=== PATIENT | male | born 1970 | race Caucasian/White ===

== ENCOUNTER 2016-10-23 20:11 | Emergency (ER) | payer OTHER ==
[~2016-10-23] VITALS: Ht 175.3 cm; Wt 108.9 kg
[~2016-10-23 20:11] MED LIST: COLA100C2 OR; KEFL500C OR; LEVOXYL25 MCG OR; PERC5TAB8 OR; PYRI200T OR; VICO5TAB OR
[2016-10-23] MEDS ORDERED: SERT-138 (20:24)
[2016-10-23] MEDS ORDERED: LEVO200T4 (20:24)
[2016-10-23] MEDS ORDERED: HYDR10TAB (20:24)
[2016-10-23] MEDS ORDERED: LABE10TAB (20:24)
[2016-10-23] MEDS ORDERED: TESS100C PO (22:38)
[2016-10-23] MEDS ORDERED: MAGICMW SSP (22:38)
[2016-10-23 22:55] VITALS: BP 145/88
--- NOTE | 2016-10-24 08:07 | REP ---
Clinical: Cough. Technique: PA and lateral. Comparison: 05/15/2016. Findings: Evaluation is somewhat limited by poor inspiratory effort. There is evidence to suggest right lower lobe infiltrate/atelectasis. No obvious effusion. No pneumothorax. Mediastinum and cardiac silhouette normal. Skeletal structures intact. Impression: Right lower lobe infiltrate/atelectasis. Signed by Preston Cespedes MD 10/24/2016 07:58 A
--- NOTE | 2016-10-24 11:56 | ED PDOC ---
Post-Departure Follow-Up formal cxr noted. spoke w ed apprentice painter brush. chart reviewed. Tmax 101 at home w cough for 1 wk to rx. levaquin 750 mg qd. Scot quarles will reach out to pt. and review. Omar Nichole MD Oct 24, 2016 11:56
== END 2016-10-23 22:57 | disposition home or self-care (01) ==
LOC: M ED 21:28
DX: J06.9 Acute upper respiratory infection, unspecified (principal); I10 Essential (primary) hypertension; E03.9 Hypothyroidism, unspecified; G47.30 Sleep apnea, unspecified; Z98.84 Bariatric surgery status; Z79.899 Other long term (current) drug therapy; Z88.5 Allergy status to narcotic agent; Z88.8 Allergy status to other drugs, medicaments and biological substances

== ENCOUNTER 2017-03-21 05:28 | Inpatient (IN) | payer OTHER ==
[~2017-03-21] VITALS: Ht 175.3 cm; Wt 92.6 kg
[~2017-03-21 05:28] MED LIST changes: +HYDR10TAB PO; +LABE10TAB PO; +LEVO200T4 PO; +MAGICMW SSP; +SERT-138 PO; +TESS100C PO
[2017-03-21 06:07] LABS: MEAN CORPUSCULAR HGB CONC 33.8 g/dl (32.0-36.5); MEAN CORPUSCULAR VOLUME 82.7 fl (80.0-96.0); RED CELL DISTRIBUTION WIDTH 15.1 % (11.5-14.5); WHITE BLOOD COUNT 6.5 K/mm3 (4.0-10.0)
[2017-03-21 06:46] LABS: METHADONE URINE NEGATIVE (NEGATIVE)
[2017-03-21] MEDS ORDERED: MOM 30ML SUSPENSION UDC PO PRN (07:00)
[2017-03-21] MEDS ORDERED: MAALOX 30 ML SUSP *UDC PO PRN (07:00)
[2017-03-21 07:02] LABS: ALBUMIN 4.7 GM/DL (3.2-5.2); ALBUMIN/GLOBULIN RATIO 1.47 (1.00-1.93); ALKALINE PHOSPHATASE 92 U/L (45-117); ALT/SGPT 17 U/L (12-78); ANION GAP 12 MEQ/L (8-16); AST/SGOT 19 U/L (15-37); BILIRUBIN,DIRECT 0.5 MG/DL (0.0-0.2); BLOOD UREA NITROGEN 14 MG/DL (7-18); CALCIUM LEVEL 9.3 MG/DL (8.5-10.1); CARBON DIOXIDE LEVEL 27 MEQ/L (21-32); CHLORIDE LEVEL 104 MEQ/L (98-107); CREATININE FOR GFR 1.17 MG/DL (0.70-1.30); GLOMERULAR FILTRATION RATE > 60.0 (>60); GLUCOSE, FASTING 105 MG/DL (70-105); POTASSIUM SERUM 3.4 MEQ/L (3.5-5.1); SODIUM LEVEL 143 MEQ/L (136-145); TOTAL PROTEIN 7.9 GM/DL (6.4-8.2)
[2017-03-21] MEDS ORDERED: SERTRALINE HCL 50 MG TAB PO SCH (09:00)
[2017-03-21 12:38] VITALS: BP 188/120
--- NOTE | 2017-03-21 15:49 | MHHPEPDOC ---
[facility] History & Physical History and Physical DATE OF ADMISSION: Mar 21, 2017 at 06:57 LEGAL STATUS AT ADMISSION: 9.39 CHIEF COMPLAINT: Patient came to the ED saying he wanted to OD on all his medications because he is at "the end of his rope" since he has financial problems. HISTORY OF THE PRESENT ILLNESS: Patient is a 46-year-old male, who reports he has financial problems due overspending. He states he has about $6,000.00 in debts and he is not employed, he receives SSI and repeats over and over again," I don't know why I do this." He feels overwhelmed now that he is getting calls demanding money. He and his son live together and share expenses. His son is also on disability for Mild intellectual functioning, bipolar disorder and ADHD. He is very concerned about his 's health who has lung cancer. PSYCHIATRIC REVIEW OF SYSTEMS: Affective: Hopeless, helpless, frustrated Anxiety: Very high Trauma: Denies Psychosis: He's not responding to internal stimuli, denies psychosis Personally: Needs further assessment PAST PSYCHIATRIC HISTORY: Prior Psychiatric Disorder: Patient says he has been taking Zoloft, and his doctor upgraded to 200 mgs. PO QD, but has not been compliant with it. Outpatient Treatment: Gets medication from his family Doctor, Dr. Erik Loya. He used to go to [facility]. He doesn't remember what medications he was on. He started feeling well and then, he stopped taking them Suicidal/Self injurious: He has suicidal ideation Psychotropic Medication History: He has taken other psychiatric medications whose name he doesn't remember but he knows he takes Zoloft. He "thinks" he took Ritalin years ago for ADHD. ALLERGIES: Please see below. FAMILY PSYCHIATRIC HISTORY: He has a 23 year son who has been diagnosed with Bipolar Disorder, ADHD and Mild Intellectual Disability. He is on disability for those reason. One of his brothers is "mentally handicapped, he's got a lot of emotional problems and stuff". he says he doesn't see his brother very often , he doesn't know his brother diagnosis and he doesn't know if he takes medications. SOCIAL HISTORY: Early Relations/development: Grew up in [place], his parents were from [place]. He says he had problems learning, had 'a bad behavior problem", he says he had angry outbursts. He says he got school suspensions frequently but when he was 14, he never went back. He can't remember if he was expulsed from school or he was suspended and never went back. Sibling order: He has two older brothers and one older sister. He is the fourth one. He has 4 younger siblings. One of them is , he was older than the patient. His brother of a massive heart attack at the age of 40. Paternal relationships: Both parents are . "They of medical stuff complications" Education: He didn't graduate from High School. He has a hard time with reading and writing since he was a child. He has been diagnosed with a learning disability. He only can write his name, he can copy a few things but other than that, he's limited. He can't read a lot, he can't understand a lot. Occupational: Unemployed. 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 Legal: Denies Martial: He is but he is still . He helps to take care of his , who has lung cancer and has breathing difficulties.He has two sons and a daughter. Sons are 24 and 23. Daughter is 28 years old. Economic: Receives disability check because he has a learning disability, he can 't read or write. He has spinal stenosis. Supports: He feels his son is supportive, he feels his siblings are supportive. Abuse/trauma: Denies SUBSTANCE ABUSE HISTORY: Has used alcohol occasionally although he says years ago he used to drink "quite a bit but not anymore". doesn't smoke cigarettes. he used marijuana years ago, on and off but not anymore. Denies using cocaine or crack. Denies using heroine or other opioids. PAST MEDICAL/SURGICAL HISTORY: 1. Spinal stenosis 2. Hypertension 3. Hypothyroidism VITAL SIGNS: See below MENTAL STATUS EXAMINATION: General appearance: Patient is a 46-year old male, who is alert, disheveled, dressed in hospital clothes with fair eye contact. Speech: coherent. Thought processes: Intact. Thought content: Coherent. Abstract reasoning and computation: Fair. Description of associations: Good. Description of abnormal or psychotic thoughts: Denies thought delusions, denies auditory and visual hallucinations, says he gets obsessive about buying things. Judgment: Poor Insight: Poor. Orientation: Oriented x 3. Recent and remote memory: Limited. Attention span and concentration: Fair. Fund of knowledge: Fair. Mood: "Irritable/sad." Affect: Labile DIAGNOSES: 1. Major Depressive Disorder, recurrent, severe 2. R/O Mild intellectual functioning 3. ADHD by history 4. Learning Disabilities by history ASSESSMENT: seems to be low functioning, he is impulsive, depressed, has neglected his medical problems, has not been taking his medications. His TSH is 88.9. Dr. Brizuela was made aware of this and designated Dr. Marshall to evaluate the patient while he still was at the ED. Dr. Marshall said his TSH was very high because he had stopped taking his medications, but he could ve started on them again. i consider is necessary to do a CT to r/o other possible complication ( mass, tumor???) PROBLEM LIST: 1. Risk for suicide 2. Risk for self injury. 3. Depression 4. Self care deficit 5. Poor impulse control 6. Ineffective coping 7. Noncompliance 8. Anxiety INITIAL TREATMENT PLAN: 1. Patient was admitted on a 9. 2. Complete history was obtained. 3. With patients permission, family will be contacted and database will be expanded. 4. Patients medication regimen will be reviewed and changed accordingly. 5. Patient will be provided with protected environment. 6. Patient will be treated with individual, group, and milieu therapies. 7. Patient will receive supportive psych-education. 8. Discharge planning will commence immediately. 9. Outpatient follow-up treatment will be strongly recommended. 10. The initial treatment plan will focus initially on: * Depression. * Risk for suicide. * Substance abuse. ESTIMATED LENGTH OF STAY: 5-7 DAYS. TIME SPENT COUNSELING AND COORDINATING INITIAL CARE: 60 minutes. Laboratory Data 24H Labs Laboratory Tests 2 03/21/17 05:53: Anion Gap 12, Glomerular Filtration Rate > 60.0, Calcium Level 9.3, Aspartate Amino Transf (AST/SGOT) 19, Alanine Aminotransferase (ALT/SGPT) 17, Alkaline Phosphatase 92, Total Bilirubin 2.0H, Direct Bilirubin 0.5H, Total Protein 7.9, Albumin 4.7, Albumin/Globulin Ratio 1.47, Thyroid Stimulating Hormone (TSH) 89.900H, Salicylates Level < 1.7L, Urine Amphetamines Screen NEGATIVE, Urine Benzodiazepines Screen NEGATIVE, Urine Opiates Screen NEGATIVE, Urine Methadone Screen NEGATIVE, Acetaminophen Level < 2.0L, Urine Barbiturates Screen NEGATIVE , Urine Phencyclidine Screen NEGATIVE, Urine Cocaine Metabolite Screen NEGATIVE , Urine Cannabinoids Screen NEGATIVE, Ethyl Alcohol Level < 0.003 CBC/BMP Laboratory Tests 03/21/17 05:53 Red Blood Count 5.19, Mean Corpuscular Volume 82.7, Mean Corpuscular Hemoglobin 28.0, Mean Corpuscular Hemoglobin Concent 33.8, Red Cell Distribution Width 15.1 H Medications Scheduled Hydralazine HCl (Hydralazine HCl) 10 Mg Tab, 10 MG PO TID, (Reported) Labetalol HCl (Labetalol HCl) 100 Mg Tab, 100 MG PO BID, (Reported) Levothyroxine Sodium (Synthroid) 200 Mcg Tab, 200 MCG PO DAILY, (Reported) Sertraline HCl (Sertraline HCl) 100 Mg Tab, 100 MG PO QHS, (Reported) Allergies Coded Allergies: Prednisone (Unverified Allergy, Unknown, aphylaxis, 07/21/15) Tramadol (Unverified Allergy, Unknown, aphylaxis, 07/21/15) Trazodone (Verified Allergy, Unknown, 10/11/14) SWETHA BELTRAN MD Mar 21, 2017 15:49
[2017-03-21] MEDS ORDERED: **hydrALAZINE** 10 MG TAB PO SCH (16:00)
--- NOTE | 2017-03-21 16:12 | CR.PDOC ---
[facility] Consultation Consultation DATE OF CONSULTATION: Mar 21, 2017 at 05:28 REFERRING PROVIDER: Arnulfo Mcneill M.D. ATTENDING PHYSICIAN: Dr. Jeffrey REASON FOR CONSULTATION/CHIEF COMPLAINT: . Hypothyroidism HISTORY OF PRESENT ILLNESS: . 46-year-old male with past medical history of hypertension, hypothyroidism, and depression presented to the ER with a chief complaint of symptoms of depression and suicidal ideations. The patient states that he has been having thoughts of hurting himself because he is under stress from financial concerns. The hospitalist team was consulted due to the patient having an abnormal TSH level. At this time, the patient states that he has not taken any of his blood pressure medications or his levothyroxine for the past 8+ months. He reports that the aforementioned stressors were on his mind, and he stopped taking his medications because he didn't think they were helping. The patient denies any complaints at this time of fevers, chills, headaches, chest pain, palpitations, shortness of breath, abdominal pain, or any nausea/vomiting/diarrhea, weight gain/loss, or any other acute complaints. ALLERGIES: Please see below. HOME MEDICATIONS: Please see below. PAST MEDICAL HISTORY: 1. . As noted above PAST SURGICAL HISTORY: 1. Gastric bypass FAMILY HISTORY: Noncontributory SOCIAL HISTORY: Occasionally has an alcoholic beverage. Denies any tobacco use or any illicit drug use. Currently on disability. He is able to ambulate without any assistive devices. Lives with his son was also on disability. REVIEW OF SYSTEMS: 10 point review of systems negative unless otherwise specified in HPI. PHYSICAL EXAMINATION: VITAL SIGNS: Please see below. GENERAL APPEARANCE: . Awake, alert, in no acute distress HEENT: . Normocephalic, atraumatic RESPIRATORY: . Clear to auscultation bilaterally CARDIOVASCULAR: . Normal rate, normal S1, S2 ABDOMEN: . Soft, nontender, nondistended EXTREMITIES: . No tenderness or swelling LABORATORY DATA: Please see below. ASSESSMENT/PLAN: 1. . Abnormal TSH level 2/2 Non-Adherence to Medical Therapy The patient has not been taking his levothyroxine 200 mcg for the past 8+ months The patient is not displaying any signs or symptoms of myxedema coma We will restart the patient's levothyroxine at 200 g daily Repeat TFT's in 6-8 weeks to assess response 2. . Hypertension Elevated B/P in the ER (170s/90s) 2/2 Non-Adherence to Medical Therapy Patient restarted on Labetalol and Hydralazine with holding parameters 3. Depression with Suicidal Ideations Mgmt as per Psychiatry Thank you for allowing us to participate in the care of this patient. Please do not hesitate to call with any questions or concerns. Vital Signs/I&O Vital Signs Date Time Temp Pulse Resp B/P (MAP) Pulse Ox O2 Delivery O2 Flow Rate FiO2 03/21/17 12:38 98.0 57 18 188/120 (142) 99 Room Air Laboratory Data Labs 24H Laboratory Tests 2 03/21/17 05:53: Anion Gap 12, Glomerular Filtration Rate > 60.0, Calcium Level 9.3, Aspartate Amino Transf (AST/SGOT) 19, Alanine Aminotransferase (ALT/SGPT) 17, Alkaline Phosphatase 92, Total Bilirubin 2.0H, Direct Bilirubin 0.5H, Total Protein 7.9, Albumin 4.7, Albumin/Globulin Ratio 1.47, Thyroid Stimulating Hormone (TSH) 89.900H, Salicylates Level < 1.7L, Urine Amphetamines Screen NEGATIVE, Urine Benzodiazepines Screen NEGATIVE, Urine Opiates Screen NEGATIVE, Urine Methadone Screen NEGATIVE, Acetaminophen Level < 2.0L, Urine Barbiturates Screen NEGATIVE , Urine Phencyclidine Screen NEGATIVE, Urine Cocaine Metabolite Screen NEGATIVE , Urine Cannabinoids Screen NEGATIVE, Ethyl Alcohol Level < 0.003 CBC/BMP Laboratory Tests 03/21/17 05:53 Red Blood Count 5.19, Mean Corpuscular Volume 82.7, Mean Corpuscular Hemoglobin 28.0, Mean Corpuscular Hemoglobin Concent 33.8, Red Cell Distribution Width 15.1 H Allergies Coded Allergies: Prednisone (Unverified Allergy, Unknown, aphylaxis, 07/21/15) Tramadol (Unverified Allergy, Unknown, aphylaxis, 07/21/15) Trazodone (Verified Allergy, Unknown, 10/11/14) Home Medications Scheduled Hydralazine HCl (Hydralazine HCl) 10 Mg Tab, 10 MG PO TID, (Reported) Labetalol HCl (Labetalol HCl) 100 Mg Tab, 100 MG PO BID, (Reported) Levothyroxine Sodium (Synthroid) 200 Mcg Tab, 200 MCG PO DAILY, (Reported) Sertraline HCl (Sertraline HCl) 100 Mg Tab, 100 MG PO QHS, (Reported) ARNULFO MCNEILL MD Mar 21, 2017 16:12
[2017-03-21 16:34] LABS: FREE T4 0.79 NG/DL (0.76-1.46)
[2017-03-21] MEDS: hydrOXYzine 50 MG TAB PO PRN (16:36)
[2017-03-21] MEDS ORDERED: POTASSIUM CHLORIDE 10 MEQ SR TABLET PO ONE (17:00)
[2017-03-21 18:00] VITALS: BP 166/116
[2017-03-21 18:12] VITALS: BP 138/96
[2017-03-21 18:13] VITALS: BP 139/90
[2017-03-21] MEDS: LEVOTHYROXINE 100MCG TABLET (0.1MG) PO SCH (19:14)
[2017-03-21] MEDS: **hydrALAZINE HCL** 25 MG TAB PO SCH (21:29)
[2017-03-21] MEDS: risperiDONE 0.5 MG TAB PO SCH (21:29)
[2017-03-21] MEDS: LABETALOL 100 MG TAB PO SCH (21:30)
[2017-03-22] MEDS: ACETAMINOPHEN TAB 650MG DOSE (2X325MG) PO PRN ×3 (03:46→21:15)
--- NOTE | 2017-03-22 04:10 | HPE ---
DATE OF ADMISSION: 03/21/2017 HISTORY OF PRESENT ILLNESS: Please refer to psychiatric history and evaluation for further details on this admission. This examination and history is intended for medical issues, which may need treatment, consult or followup on this 46-year-old male. PRIMARY CARE PROVIDER: CL Kennedy. ALLERGIES: PREDNISONE, TRAMADOL, TRAZODONE. SOCIAL HISTORY: He is . He is currently receiving disability for learning disability. He lives with his son who is on disability for bipolar disorder, attention deficit hyperactivity disorder (ADHD) and mild intellectual disability. Ethyl alcohol (EtOH): Years ago he drank very heavily. He states now he drinks one or two drinks every 2-3 months. Smokes none. Recreational drug use: None. PAST MEDICAL HISTORY: 1. Hypothyroidism. 2. Hypertension. 3. Spinal stenosis. 4. He has not been taking his medications he says for at least 3-4 months and before that very sporadically. PAST SURGICAL HISTORY: 1. Gastric bypass. 2. Back surgery about 20 years ago. 3. Internal urethrotomy September of 2014 for a history of urethral stricture. FAMILY HISTORY: Mother's medical history is unknown by patient. Patient's father is . HOME MEDICATIONS: - sertraline 100 mg by mouth nightly - hydralazine 10 mg by mouth three times a day - labetalol 100 mg by mouth twice a day - levothyroxine 200 mcg by mouth daily LABORATORY STUDIES: WBC 6.5, hemoglobin 14.5, hematocrit 43, platelets 275. Sodium 143, potassium 3.4 and patient had replacement, total bilirubin 2.0, direct bilirubin 0.3, TSH was 89.900, free T4 was 0.79. Toxicology was negative. REVIEW OF SYSTEMS: 10-system review was done. He had no physical complaints. It was unremarkable. Patient had a medical consult while in the emergency room prior to arrival to the inpatient mental health unit done by Dr. Marshall for his elevated hypothyroidism and blood pressure. See consult. PHYSICAL EXAMINATION: Height 69 inches, weight 88.71 kg, body mass index (BMI) 28.9. Blood pressure upon arrival to the unit was 171/121, half an hour later 188/120, pulse has been 57-69. He received his labetalol and hydralazine and by 1612 blood pressure was improving. It was 138/96. Pulse 69, respirations 18, temperature 97.8. 46-year-old cooperative male in no acute distress, wears glasses. Pupils equal and react to light. Extraocular muscles intact. Cornea and sclerae clear. Conjunctivae were normal. No facial asymmetry. Pharynx, tongue and gums pink and moist. Tongue is midline. Neck is supple without lymphadenopathy. No thyromegaly, no goiter. Carotids 2+ without bruit. Chest clear to auscultation without wheeze or retraction. Heart is regular. Abdomen is benign. Bowel sounds positive. Genitourinary/rectal: Not done. Extremities: Show equal strength, full range of motion. No cyanosis, clubbing or edema. Peripheral pulses equal and palpable bilaterally. Skin is warm and dry. IMPRESSION/PLAN: 1. Psychiatric plan per psychiatry. 2. Uncontrolled hypertension secondary to medication noncompliance. Improved since restarting his labetalol and hydralazine. Will continue to monitor and adjust as needed. Followup with primary care provider Erik Jones. 3. Elevated thyroid-stimulating hormone (TSH). Again, secondary to medication noncompliance. Levothyroxine has been restarted. He will need to followup with his primary care provider as an outpatient and have a recheck TSH, T4 in approximately 6 weeks. 4. Hypokalemia. Patient was given replacement potassium in the emergency room. Will recheck a level in the morning.
[2017-03-22] MEDS: LEVOTHYROXINE 100MCG TABLET (0.1MG) PO SCH (05:48)
[2017-03-22 06:42] VITALS: BP 119/77
[2017-03-22 08:44] LABS: ALBUMIN 4.4 GM/DL (3.2-5.2); ALBUMIN/GLOBULIN RATIO 1.42 (1.00-1.93); ALKALINE PHOSPHATASE 86 U/L (45-117); ALT/SGPT 15 U/L (12-78); ANION GAP 10 MEQ/L (8-16); AST/SGOT 15 U/L (15-37); BILIRUBIN,TOTAL 1.2 MG/DL (0.2-1.0); BLOOD UREA NITROGEN 22 MG/DL (7-18); CALCIUM LEVEL 9.1 MG/DL (8.5-10.1); CARBON DIOXIDE LEVEL 28 MEQ/L (21-32); CHLORIDE LEVEL 107 MEQ/L (98-107); GLOMERULAR FILTRATION RATE > 60.0 (>60); GLUCOSE, FASTING 91 MG/DL (70-105); POTASSIUM SERUM 4.1 MEQ/L (3.5-5.1); SODIUM LEVEL 145 MEQ/L (136-145); TOTAL PROTEIN 7.5 GM/DL (6.4-8.2)
[2017-03-22] MEDS: SERTRALINE 100 MG TAB PO SCH (08:47)
[2017-03-22] MEDS: LABETALOL 100 MG TAB PO SCH ×2 (08:47→21:13)
[2017-03-22] MEDS: **hydrALAZINE HCL** 25 MG TAB PO SCH ×3 (08:48→21:13)
[2017-03-22] MEDS: risperiDONE 0.5 MG TAB PO SCH ×2 (08:48→21:13)
--- NOTE | 2017-03-22 10:42 | MHIPNPDOC ---
[facility] Progress Note Progress Note DATE OF SERVICE: 03/22/17 INTERVAL HISTORY: Medication Side effects: Patient denies medication side effects Behavior: Patient has been attending groups, has participated in them, has not been aggressive or violent, has been respectful of staff and peers Group Attendance: Good Psychiatric Symptom change: Patient is still anxious but a little bit less than yesterday. Says he woke up around 3 a.m. and had a little bit of a hard time going back to sleep. VITAL SIGNS: See below. NEW TEST RESULTS: See below CURRENT MEDICATIONS: See below. MENTAL STATUS EXAMINATION: General: Alert, cooperative, dressed in hospital clothes, with good eye contact , disheveled Speech: Spontaneous, fluid, sometimes tangential Thought processes: Coherent Thought content: Anxious thoughts about his financial problems, but those thoughts are not as frequen as they were yesterday. Abstract reasoning, and computation: Limited Description of associations: Fair Description of abnormal or psychotic thoughts: Denies auditory and visual hallucinations, denies thought delusions, denies suicidal and homicidal ideation Judgment: Poor Insight: Limited Orientation: Oriented 3 Recent and remote memory: Patient has memory from events of his past, his recent memory is good. Attention span and concentration: Fair Fund of knowledge: Fair Mood: Anxious Affect: Congruent to mood DIAGNOSES: 1. Major depressive disorder, recurrent, severe 2. Rule out bipolar 2 disorder 3. Rule out mild intellectual disability 4. ADHD by history ASSESSMENT: patient says he is feeling less anxious and less depressed today, he feels medications are working. Denied medication side effects. He seems more calmed, has not been tearful today. MANAGEMENT PLAN: Will continue with the same treatment plan, the same medications, group and individual psychotherapy. Patient's worries are mostly secondary to overspending and having poor impulse control. He says that he becomes obsessed about the things that he wants to buy, cannot get them out of his mind until he goes and buys them. Maybe through caseworkers he could get in touch with some credits counseling agents that will help him with his financial problems. Patient's judgment and insight are poor. Disposition: Patient is to remain at the inpatient mental health unit for further stabilization and medication adjustments. He will need psychotherapy to address other issues, to learn coping skills to control his impulsivity TIME SPENT: 30 minutes. Vital Signs Vital Signs Date Time Temp Pulse Resp B/P (MAP) Pulse Ox O2 Delivery O2 Flow Rate FiO2 03/22/17 08:48 119/77 03/22/17 08:47 61 03/22/17 06:42 99.0 20 03/21/17 12:38 99 Room Air Laboratory Data 24H Labs Laboratory Tests 2 03/22/17 07:37: Anion Gap 10, Glomerular Filtration Rate > 60.0, Blood Urea Nitrogen 22#H, Creatinine 1.20, Sodium Level 145, Potassium Level 4.1#, Chloride Level 107, Carbon Dioxide Level 28, Calcium Level 9.1, Aspartate Amino Transf (AST/SGOT) 15 , Alanine Aminotransferase (ALT/SGPT) 15, Alkaline Phosphatase 86, Total Bilirubin 1.2H, Total Protein 7.5, Albumin 4.4, Albumin/Globulin Ratio 1.42 CBC/BMP Laboratory Tests 03/22/17 07:37 Calcium Level 9.1, Aspartate Amino Transf (AST/SGOT) 15, Alanine Aminotransferase (ALT/SGPT) 15, Alkaline Phosphatase 86, Total Bilirubin 1.2 H, Total Protein 7.5, Albumin 4.4 Current Medications Current Medications Acetaminophen (Tylenol Tab) 650 mg Q6HP PRN PO HEADACHE or DISCOMFORT Last administered on 03/22/17 08:48; Start 03/21/17 at 07:00; Stop 04/20/17 at 06:59 Al Hydrox/Mg Hydrox/Simethicone (Mylanta) 30 ml Q4HP PRN PO HEARTBURN/ INDIGESTION; Start 03/21/17 at 07:00; Stop 04/20/17 at 06:59 Home Med (Med Rec Complete!) ASDIRECTED XX ; Start 03/21/17 at 06:30; Stop at 06:30; Status DC Hydralazine HCl (Apresoline) 10 mg TID PO Last administered on 03/21/17 16:36 ; Start 03/21/17 at 16:00; Stop 03/21/17 at 16:41; Status DC Hydralazine HCl (Apresoline) 25 mg TID PO Last administered on 03/22/17 08:48 ; Start 03/21/17 at 21:00; Stop 04/20/17 at 20:59 Hydroxyzine HCl (Atarax) 50 mg Q4HP PRN PO ITCHING Last administered on 16:36; Start 03/21/17 at 16:00; Stop 04/20/17 at 15:59 Labetalol HCl (Normodyne, Trandate) 100 mg BID PO Last administered on 08:47; Start 03/21/17 at 21:00; Stop 04/20/17 at 20:59 Levothyroxine Sodium (Synthroid) 200 mcg DAILY@0600 PO Last administered on 05:48; Start 03/21/17 at 14:00; Stop 04/20/17 at 13:59 Magnesium Hydroxide (Milk Of Magnesia) 30 ml DAILYPRN PRN PO CONSTIPATION; Start 03/21/17 at 07:00; Stop 04/20/17 at 06:59 Risperidone (RisperDAL) 0.5 mg BID PO Last administered on 03/22/17 08:48; Start 03/21/17 at 21:00; Stop 04/20/17 at 20:59 Sertraline HCl (Zoloft) 50 mg DAILY PO Last administered on 03/21/17 16:36; Start 03/21/17 at 09:00; Stop 03/21/17 at 23:59; Status DC Sertraline HCl (Zoloft) 100 mg DAILY PO Last administered on 03/22/17 08:47; Start 03/22/17 at 09:00; Stop 04/21/17 at 08:59 Allergies Coded Allergies: Prednisone (Unverified Allergy, Unknown, aphylaxis, 07/21/15) Tramadol (Unverified Allergy, Unknown, aphylaxis, 07/21/15) Trazodone (Verified Allergy, Unknown, 10/11/14) SWETHA BELTRAN MD Mar 22, 2017 10:42
[2017-03-22 18:00] VITALS: BP 135/69
[2017-03-22] MEDS: hydrOXYzine 50 MG TAB PO PRN (21:13)
[2017-03-23] MEDS: LEVOTHYROXINE 100MCG TABLET (0.1MG) PO SCH (06:17)
[2017-03-23 06:35] VITALS: BP 118/71
[2017-03-23] MEDS: risperiDONE 0.5 MG TAB PO SCH ×2 (08:14→20:35)
[2017-03-23] MEDS: **hydrALAZINE HCL** 25 MG TAB PO SCH ×3 (08:14→20:36)
[2017-03-23] MEDS: SERTRALINE 100 MG TAB PO SCH (08:14)
[2017-03-23] MEDS: LABETALOL 100 MG TAB PO SCH ×2 (08:15→20:36)
[2017-03-23] MEDS: DIVALPROEX 250 MG TAB PO SCH ×2 (11:55→20:37)
--- NOTE | 2017-03-23 14:18 | MHIPNPDOC ---
[facility] Progress Note Progress Note DATE OF SERVICE: 03/23/17 HISTORY: day 3 of admission. admitted on 9.39 Involuntary status. Patient came to the ED saying he wanted to OD on all his medications because he is at "the end of his rope" since he has financial problems. VITAL SIGNS: See below. NEW TEST RESULTS: CURRENT MEDICATIONS: See below. MENTAL STATUS EXAMINATION: Patient is a 46-year old male, who is disheveled, distraught, dark hair, glasses and short in stature. Speech: Is spontaneous Language skills are adequate Thought processes including: cuts himself off mid-sentence due to distress. tangential and circumstantial. Thought content: finances, son, appropriate. Abstract reasoning, and computation : fair. Description of associations: good. Description of abnormal or psychotic thoughts: pt denies persistent thoughts of suicide. States this has stopped and he would like to go home. Pt is over- wrought with worry. Judgment: poor Insight: very limited. Orientation: well oriented to place, time, surroundings and person. Recent and remote memory: adequate. Attention span and concentration: poor, h/o ADHD Fund of knowledge: Limited/Impaired, poor decision making. Mood: depressed. Affect: congruent. DIAGNOSES: 1. Major depressive disorder, recurrent, severe 2. Rule out bipolar 2 disorder 3. Rule out mild intellectual disability 4. ADHD by history ASSESSMENT:pt has spent $6000 on furniture, a scooter for his son, a new car and other expenses since November. his income is only $758/month. He pays $297 in rent. He shares rent with his son currently. He is also his son's payee. Son receives SSDI. He admits to having poor impulse control when using credit cards. He is behind on his payments (not car and scooter). Car is insured and this costs him $188 a month. Creditors are calling him all the time and he is getting notices in the mail. He does not know how to proceed. He has been admitted previously for depression. he is non compliant with treatment following discharge. MANAGEMENT PLAN: we will contact credit counseling to see if they have suggestions for pat. Perhaps they can visit him here and give him some suggestions. He needs hands on help with getting his affairs in order. We will likely need to contact his family and get a few people involved that can help him. He won't be able to manage this on his own. He has 5 sisters in the area. ? case management - would this be of any help to him. He would likely benefit from having a payee himself and not being son's payee. He has started on Depakote for assistance with impulse control. Thyroid level very high. Levothyroxine ordered. pt was non-complaint with antihypertensive med as an out patient too. He has endangered his health due to his poor judgment and insight and possibly his poor understanding of his medical conditions. Will assessment counselor pt on these things. TIME SPENT: 25 minutes. Vital Signs Vital Signs Date Time Temp Pulse Resp B/P (MAP) Pulse Ox O2 Delivery O2 Flow Rate FiO2 03/23/17 08:15 81 118/71 03/23/17 06:35 99.0 20 Room Air 03/21/17 12:38 99 Current Medications Current Medications Acetaminophen (Tylenol Tab) 650 mg Q6HP PRN PO HEADACHE or DISCOMFORT Last administered on 03/22/17 21:15; Start 03/21/17 at 07:00; Stop 04/20/17 at 06:59 Al Hydrox/Mg Hydrox/Simethicone (Mylanta) 30 ml Q4HP PRN PO HEARTBURN/ INDIGESTION; Start 03/21/17 at 07:00; Stop 04/20/17 at 06:59 Divalproex Sodium (Depakote) 250 mg BID PO Last administered on 03/23/17 11:55 ; Start 03/23/17 at 09:00; Stop 04/22/17 at 08:59 Home Med (Med Rec Complete!) ASDIRECTED XX ; Start 03/21/17 at 06:30; Stop at 06:30; Status DC Hydralazine HCl (Apresoline) 10 mg TID PO Last administered on 03/21/17 16:36 ; Start 03/21/17 at 16:00; Stop 03/21/17 at 16:41; Status DC Hydralazine HCl (Apresoline) 25 mg TID PO Last administered on 03/23/17 08:14 ; Start 03/21/17 at 21:00; Stop 04/20/17 at 20:59 Hydroxyzine HCl (Atarax) 50 mg Q4HP PRN PO ITCHING Last administered on 21:13; Start 03/21/17 at 16:00; Stop 04/20/17 at 15:59 Labetalol HCl (Normodyne, Trandate) 100 mg BID PO Last administered on 08:15; Start 03/21/17 at 21:00; Stop 04/20/17 at 20:59 Levothyroxine Sodium (Synthroid) 200 mcg DAILY@0600 PO Last administered on 06:17; Start 03/21/17 at 14:00; Stop 04/20/17 at 13:59 Magnesium Hydroxide (Milk Of Magnesia) 30 ml DAILYPRN PRN PO CONSTIPATION; Start 03/21/17 at 07:00; Stop 04/20/17 at 06:59 Risperidone (RisperDAL) 0.5 mg BID PO Last administered on 03/23/17 08:14; Start 03/21/17 at 21:00; Stop 04/20/17 at 20:59 Sertraline HCl (Zoloft) 50 mg DAILY PO Last administered on 03/21/17 16:36; Start 03/21/17 at 09:00; Stop 03/21/17 at 23:59; Status DC Sertraline HCl (Zoloft) 100 mg DAILY PO Last administered on 03/23/17 08:14; Start 03/22/17 at 09:00; Stop 04/21/17 at 08:59 Allergies Coded Allergies: Prednisone (Unverified Allergy, Unknown, aphylaxis, 07/21/15) Tramadol (Unverified Allergy, Unknown, aphylaxis, 07/21/15) Trazodone (Verified Allergy, Unknown, 10/11/14) Perla Hanley Mar 23, 2017 14:18
[2017-03-23] MEDS: ACETAMINOPHEN TAB 650MG DOSE (2X325MG) PO PRN (16:42)
[2017-03-23 17:52] VITALS: BP 138/80
[2017-03-23 18:00] VITALS: BP 150/100
[2017-03-24] MEDS: LEVOTHYROXINE 100MCG TABLET (0.1MG) PO SCH (06:11)
[2017-03-24 06:22] VITALS: BP 135/100
[2017-03-24] MEDS: SERTRALINE 100 MG TAB PO SCH (08:24)
[2017-03-24] MEDS: risperiDONE 0.5 MG TAB PO SCH ×2 (08:24→20:57)
[2017-03-24] MEDS: DIVALPROEX 250 MG TAB PO SCH ×2 (08:24→20:58)
[2017-03-24] MEDS: LABETALOL 100 MG TAB PO SCH ×2 (08:25→20:59)
[2017-03-24] MEDS: **hydrALAZINE HCL** 25 MG TAB PO SCH ×3 (08:25→20:59)
[2017-03-24] MEDS: ACETAMINOPHEN TAB 650MG DOSE (2X325MG) PO PRN (11:42)
[2017-03-24] MEDS: hydrOXYzine 50 MG TAB PO PRN ×2 (11:42→16:03)
--- NOTE | 2017-03-24 13:04 | MHIPNPDOC ---
[facility] Progress Note Progress Note DATE OF SERVICE: 03/24/17 HISTORY: day for of admission for SI. VITAL SIGNS: See below. NEW TEST RESULTS: .Consultation DATE OF CONSULTATION: Mar 21, 2017 at 05:28 REFERRING PROVIDER: Arnulfo Marshall M.D. ATTENDING PHYSICIAN: Dr. Jeffrey REASON FOR CONSULTATION/CHIEF COMPLAINT: . Hypothyroidism HISTORY OF PRESENT ILLNESS: . 46-year-old male with past medical history of hypertension, hypothyroidism, and depression presented to the ER with a chief complaint of symptoms of depression and suicidal ideations. The patient states that he has been having thoughts of hurting himself because he is under stress from financial concerns. The hospitalist team was consulted due to the patient having an abnormal TSH level. At this time, the patient states that he has not taken any of his blood pressure medications or his levothyroxine for the past 8+ months. He reports that the aforementioned stressors were on his mind, and he stopped taking his medications because he didn't think they were helping. The patient denies any complaints at this time of fevers, chills, headaches, chest pain, palpitations, shortness of breath, abdominal pain, or any nausea/vomiting/diarrhea, weight gain/loss, or any other acute complaints. ALLERGIES: Please see below. HOME MEDICATIONS: Please see below. PAST MEDICAL HISTORY: 1. . As noted above PAST SURGICAL HISTORY: 1. Gastric bypass FAMILY HISTORY: Noncontributory SOCIAL HISTORY: Occasionally has an alcoholic beverage. Denies any tobacco use or any illicit drug use. Currently on disability. He is able to ambulate without any assistive devices. Lives with his son was also on disability. REVIEW OF SYSTEMS: 10 point review of systems negative unless otherwise specified in HPI. PHYSICAL EXAMINATION: VITAL SIGNS: Please see below. GENERAL APPEARANCE: . Awake, alert, in no acute distress HEENT: . Normocephalic, atraumatic RESPIRATORY: . Clear to auscultation bilaterally CARDIOVASCULAR: . Normal rate, normal S1, S2 ABDOMEN: . Soft, nontender, nondistended EXTREMITIES: . No tenderness or swelling LABORATORY DATA: Please see below. ASSESSMENT/PLAN: 1. . Abnormal TSH level 2/2 Non-Adherence to Medical Therapy The patient has not been taking his levothyroxine 200 mcg for the past 8+ months The patient is not displaying any signs or symptoms of myxedema coma We will restart the patient's levothyroxine at 200 g daily Repeat TFT's in 6-8 weeks to assess response 2. . Hypertension Elevated B/P in the ER (170s/90s) 2/2 Non-Adherence to Medical Therapy Patient restarted on Labetalol and Hydralazine with holding parameters 3. Depression with Suicidal Ideations Mgmt as per Psychiatry Thank you for allowing us to participate in the care of this patient. Please do not hesitate to call with any questions or concerns. CURRENT MEDICATIONS: See below. MENTAL STATUS EXAMINATION: Patient is a 46-year old male, hair is neatly combed, wears glasses and is short in stature. Dressed in street clothes, fair eye contact Speech: Is spontaneous Language skills are adequate Thought processes including: cuts himself off mid-sentence due to distress. tangential and circumstantial. Thought content: finances, son, appropriate. Abstract reasoning, and computation : fair. Description of associations: good. Description of abnormal or psychotic thoughts: pt denies persistent thoughts of suicide. States this has stopped and he would like to go home. Pt is over- wrought with worry. Judgment: poor Insight: very limited. Orientation: well oriented to place, time, surroundings and person. Recent and remote memory: adequate. Attention span and concentration: poor, h/o ADHD Fund of knowledge: Limited/Impaired, poor decision making. Easily overwhelmed and could be easily intimidated. Mood: depressed. Affect: congruent. DIAGNOSES: 1. Major depressive disorder, recurrent, severe 2. Rule out bipolar 2 disorder 3. Rule out mild intellectual disability 4. ADHD by history ASSESSMENT:staff reports that patient's son visited last night. they found his behavior lacking. He was rude and demanding. Pt was asked if his son pressures him for things and he stated "yes". Pt participated in treatment planning and had difficulty processing the information shared with him. He did sign the treatment plan as well as several ARSLAN so that we could make contact with the numerous services or individuals who should be involved with his plan. He failed to understand the importance of this and need for this yesterday when it was explained to him. Mr. Jorgensen is very easily over whelmed with the demands of life and finds simple day to day tasks challenging. His cognitive skills are below most 48 year olds. He should really have a payee and he should not be his son's payee. He is reluctant to give any of this up however. We will discuss this with the family as auto service writer has requested a family meeting before discharge. Pt reports improved mood today, feeling less depressed. Pt states medication have been helpful but it is very early in the process to determine this. MANAGEMENT PLAN: Pt will be encouraged to take advantage of case management services and credit counseling skills that will be made available to him. He needs to meet with someone who can contact his creditors and help him establish a realistic payment plan. Pt may have to give up his car for a less expensive one. He does not drive. His son does the driving. Continue meds, close obs and schedule family meeting. a meeting with case mgt and counseling services can be held all together if possible. Pt may have visitation on 03/26 during non visiting hours by his son who attends college in [place] order written. TIME SPENT: 25 minutes. Vital Signs Vital Signs Date Time Temp Pulse Resp B/P (MAP) Pulse Ox O2 Delivery O2 Flow Rate FiO2 03/24/17 08:25 142/93 03/24/17 08:25 95 03/24/17 06:22 98.3 18 03/23/17 06:35 Room Air 03/21/17 12:38 99 Current Medications Current Medications Acetaminophen (Tylenol Tab) 650 mg Q6HP PRN PO HEADACHE or DISCOMFORT Last administered on 03/24/17 11:42; Start 03/21/17 at 07:00; Stop 04/20/17 at 06:59 Al Hydrox/Mg Hydrox/Simethicone (Mylanta) 30 ml Q4HP PRN PO HEARTBURN/ INDIGESTION; Start 03/21/17 at 07:00; Stop 04/20/17 at 06:59 Divalproex Sodium (Depakote) 250 mg BID PO Last administered on 03/24/17 08:24 ; Start 03/23/17 at 09:00; Stop 04/22/17 at 08:59 Home Med (Med Rec Complete!) ASDIRECTED XX ; Start 03/21/17 at 06:30; Stop at 06:30; Status DC Hydralazine HCl (Apresoline) 10 mg TID PO Last administered on 03/21/17 16:36 ; Start 03/21/17 at 16:00; Stop 03/21/17 at 16:41; Status DC Hydralazine HCl (Apresoline) 25 mg TID PO Last administered on 03/24/17 08:25 ; Start 03/21/17 at 21:00; Stop 04/20/17 at 20:59 Hydroxyzine HCl (Atarax) 50 mg Q4HP PRN PO ITCHING Last administered on 11:42; Start 03/21/17 at 16:00; Stop 04/20/17 at 15:59 Labetalol HCl (Normodyne, Trandate) 100 mg BID PO Last administered on 08:25; Start 03/21/17 at 21:00; Stop 04/20/17 at 20:59 Levothyroxine Sodium (Synthroid) 200 mcg DAILY@0600 PO Last administered on 06:11; Start 03/21/17 at 14:00; Stop 04/20/17 at 13:59 Magnesium Hydroxide (Milk Of Magnesia) 30 ml DAILYPRN PRN PO CONSTIPATION; Start 03/21/17 at 07:00; Stop 04/20/17 at 06:59 Risperidone (RisperDAL) 0.5 mg BID PO Last administered on 03/24/17 08:24; Start 03/21/17 at 21:00; Stop 04/20/17 at 20:59 Sertraline HCl (Zoloft) 50 mg DAILY PO Last administered on 03/21/17 16:36; Start 03/21/17 at 09:00; Stop 03/21/17 at 23:59; Status DC Sertraline HCl (Zoloft) 100 mg DAILY PO Last administered on 03/24/17 08:24; Start 03/22/17 at 09:00; Stop 04/21/17 at 08:59 Allergies Coded Allergies: Prednisone (Unverified Allergy, Unknown, aphylaxis, 07/21/15) Tramadol (Unverified Allergy, Unknown, aphylaxis, 07/21/15) Trazodone (Verified Allergy, Unknown, 10/11/14) Perla Hanley Mar 24, 2017 13:04
[2017-03-24 18:11] VITALS: BP 138/72
[2017-03-25] MEDS: hydrOXYzine 50 MG TAB PO PRN ×2 (02:00→21:03)
[2017-03-25] MEDS: LEVOTHYROXINE 100MCG TABLET (0.1MG) PO SCH (05:47)
[2017-03-25 06:40] VITALS: BP 135/97
[2017-03-25] MEDS: SERTRALINE 100 MG TAB PO SCH (08:53)
[2017-03-25] MEDS: risperiDONE 0.5 MG TAB PO SCH (08:53)
[2017-03-25] MEDS: **hydrALAZINE HCL** 25 MG TAB PO SCH ×3 (08:54→21:04)
[2017-03-25] MEDS: LABETALOL 100 MG TAB PO SCH ×2 (08:54→21:04)
[2017-03-25] MEDS: DIVALPROEX 250 MG TAB PO SCH ×2 (08:54→21:04)
--- NOTE | 2017-03-25 12:02 | MHIPNPDOC ---
[facility] Progress Note Progress Note DATE OF SERVICE: 03/25/17 HISTORY: day 5 of admission for SI and worsening depression due to financial stressors. VITAL SIGNS: See below. NEW TEST RESULTS: na CURRENT MEDICATIONS: See below. MENTAL STATUS EXAMINATION: Patient is a 46-year old male, who is clean shaven, makes good eye contact, dark hair, glasses and short in stature. Speech: Is spontaneous Language skills are adequate Thought processes including: goal directed. Thought content: appropriate. Abstract reasoning, and computation: fair. Description of associations: good. Description of abnormal or psychotic thoughts: pt denies persistent thoughts of suicide. No psychotic symptoms illicited. Judgment: fair Insight: limited. Orientation: well oriented to place, time, surroundings and person. Recent and remote memory: adequate. Attention span and concentration: improving as anxiety is reduced. h/o ADHD Fund of knowledge: Limited/Impaired, poor decision making. Mood: euthymic. Affect: congruent. DIAGNOSES: 1. Major depressive disorder, recurrent, severe 2. Rule out bipolar 2 disorder 3. Moderate intellectual disability 4. ADHD by history ASSESSMENT:pt continues to be stressed that he has over extended himself financially. we are awaiting contact with the sister so we can plan a meeting. pt is doing much better in terms of mood and not falling apart emotionally. He is eating and sleeping well. No problems with elimination. he shaved and looks much better. He is able to smile. He states he has been in contact with the sister who says she will call today as she is not working. We had hoped to have his meeting with family today so he could be discharged but so far no contact with sister. Pt has been encouraged to contact her again about calling [facility]. MANAGEMENT PLAN: continue medications, monitor sleep and safety on close obs. Enc milieu and group therapy. Once pt is satisfied that supports are in place to help him sort out his financial state he can be discharged. He is currently not suicidal. pt should consider having a payee and also getting one for his son. He is to follow up at [facility] for med mgt and therapy. TIME SPENT: 25 minutes. Vital Signs Vital Signs Date Time Temp Pulse Resp B/P (MAP) Pulse Ox O2 Delivery O2 Flow Rate FiO2 03/25/17 08:54 135/97 03/25/17 08:54 90 03/25/17 06:40 97.6 18 03/23/17 06:35 Room Air 03/21/17 12:38 99 Current Medications Current Medications Acetaminophen (Tylenol Tab) 650 mg Q6HP PRN PO HEADACHE or DISCOMFORT Last administered on 03/24/17 11:42; Start 03/21/17 at 07:00; Stop 04/20/17 at 06:59 Al Hydrox/Mg Hydrox/Simethicone (Mylanta) 30 ml Q4HP PRN PO HEARTBURN/ INDIGESTION; Start 03/21/17 at 07:00; Stop 04/20/17 at 06:59 Divalproex Sodium (Depakote) 250 mg BID PO Last administered on 03/25/17 08:54 ; Start 03/23/17 at 09:00; Stop 04/22/17 at 08:59 Home Med (Med Rec Complete!) ASDIRECTED XX ; Start 03/21/17 at 06:30; Stop at 06:30; Status DC Hydralazine HCl (Apresoline) 10 mg TID PO Last administered on 03/21/17 16:36 ; Start 03/21/17 at 16:00; Stop 03/21/17 at 16:41; Status DC Hydralazine HCl (Apresoline) 25 mg TID PO Last administered on 03/25/17 08:54 ; Start 03/21/17 at 21:00; Stop 04/20/17 at 20:59 Hydroxyzine HCl (Atarax) 50 mg Q4HP PRN PO ANXIETY Last administered on 02:00; Start 03/21/17 at 16:00; Stop 04/20/17 at 15:59 Labetalol HCl (Normodyne, Trandate) 100 mg BID PO Last administered on 08:54; Start 03/21/17 at 21:00; Stop 04/20/17 at 20:59 Levothyroxine Sodium (Synthroid) 200 mcg DAILY@0600 PO Last administered on 05:47; Start 03/21/17 at 14:00; Stop 04/20/17 at 13:59 Magnesium Hydroxide (Milk Of Magnesia) 30 ml DAILYPRN PRN PO CONSTIPATION; Start 03/21/17 at 07:00; Stop 04/20/17 at 06:59 Risperidone (RisperDAL) 0.5 mg BID PO Last administered on 03/25/17 08:53; Start 03/21/17 at 21:00; Stop 04/20/17 at 20:59 Sertraline HCl (Zoloft) 50 mg DAILY PO Last administered on 03/21/17 16:36; Start 03/21/17 at 09:00; Stop 03/21/17 at 23:59; Status DC Sertraline HCl (Zoloft) 100 mg DAILY PO Last administered on 03/25/17 08:53; Start 03/22/17 at 09:00; Stop 04/21/17 at 08:59 Allergies Coded Allergies: Prednisone (Unverified Allergy, Unknown, aphylaxis, 07/21/15) Tramadol (Unverified Allergy, Unknown, aphylaxis, 07/21/15) Trazodone (Verified Allergy, Unknown, 10/11/14) Perla Hanley Mar 25, 2017 12:01
[2017-03-25] MEDS ORDERED: DEPA250T32 PO (15:33)
[2017-03-25] MEDS ORDERED: Sertraline Hcl PO (15:33)
[2017-03-25] MEDS ORDERED: RISP0.5T21 PO ×2 (15:33→15:55)
[2017-03-25] MEDS ORDERED: HYDRO50TAB PO ×2 (15:33→15:55)
[2017-03-25 18:00] VITALS: BP 150/93
[2017-03-25] MEDS ORDERED: risperiDONE 1 MG M-TAB PO SCH (21:00)
[2017-03-26] MEDS: ACETAMINOPHEN TAB 650MG DOSE (2X325MG) PO PRN (03:45)
[2017-03-26] MEDS: LEVOTHYROXINE 100MCG TABLET (0.1MG) PO SCH (06:05)
[2017-03-26 06:43] VITALS: BP 142/90
[2017-03-26] MEDS: LABETALOL 100 MG TAB PO SCH (08:04)
[2017-03-26 08:05] VITALS: BP 142/90
[2017-03-26] MEDS: DIVALPROEX 250 MG TAB PO SCH (08:05)
[2017-03-26] MEDS: SERTRALINE 100 MG TAB PO SCH (08:05)
[2017-03-26] MEDS: **hydrALAZINE HCL** 25 MG TAB PO SCH (08:05)
[2017-03-26] MEDS ORDERED: risperiDONE 1 MG M-TAB PO SCH (09:00)
--- NOTE | 2017-03-26 19:24 | MHDSPDOC ---
[facility] Discharge Summary Discharge Summary DATE OF ADMISSION: Mar 21, 2017 at 06:57 DATE OF DISCHARGE: Mar 26, 2017 at 14:45 DISCHARGE DIAGNOSES: 1. Major depression with anxiety, recurrent, moderate. REASON FOR ADMISSION: Depression & SI with plan From H&P: "CHIEF COMPLAINT: Patient came to the ED saying he wanted to OD on all his medications because he is at "the end of his rope" since he has financial problems. HISTORY OF THE PRESENT ILLNESS: Patient is a 46-year-old male, who reports he has financial problems due overspending. He states he has about $6,000.00 in debts and he is not employed, he receives SSI and repeats over and over again," I don't know why I do this." He feels overwhelmed now that he is getting calls demanding money. He and his son live together and share expenses. His son is also on disability for Mild intellectual functioning, bipolar disorder and ADHD. He is very concerned about his 's health who has lung cancer. PSYCHIATRIC REVIEW OF SYSTEMS: Affective: Hopeless, helpless, frustrated Anxiety: Very high Trauma: Denies Psychosis: He's not responding to internal stimuli, denies psychosis Personally: Needs further assessment PAST PSYCHIATRIC HISTORY: Prior Psychiatric Disorder: Patient says he has been taking Zoloft, and his doctor upgraded to 200 mgs. PO QD, but has not been compliant with it. Outpatient Treatment: Gets medication from his family Doctor, Dr. Erik Loya. He used to go to [facility]. He doesn't remember what medications he was on. He started feeling well and then, he stopped taking them Suicidal/Self injurious: He has suicidal ideation Psychotropic Medication History: He has taken other psychiatric medications whose name he doesn't remember but he knows he takes Zoloft. He "thinks" he took Ritalin years ago for ADHD. ALLERGIES: Please see below. FAMILY PSYCHIATRIC HISTORY: He has a 23 year son who has been diagnosed with Bipolar Disorder, ADHD and Mild Intellectual Disability. He is on disability for those reason. One of his brothers is "mentally handicapped, he's got a lot of emotional problems and stuff". he says he doesn't see his brother very often , he doesn't know his brother diagnosis and he doesn't know if he takes medications. SOCIAL HISTORY: Early Relations/development: Grew up in [place], his parents were from [place]. He says he had problems learning, had 'a bad behavior problem", he says he had angry outbursts. He says he got school suspensions frequently but when he was 14, he never went back. He can't remember if he was expulsed from school or he was suspended and never went back. Sibling order: He has two older brothers and one older sister. He is the fourth one. He has 4 younger siblings. One of them is , he was older than the patient. His brother of a massive heart attack at the age of 40. Paternal relationships: Both parents are . "They of medical stuff complications" Education: He didn't graduate from High School. He has a hard time with reading and writing since he was a child. He has been diagnosed with a learning disability. He only can write his name, he can copy a few things but other than that, he's limited. He can't read a lot, he can't understand a lot. Occupational: Unemployed. 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 Legal: Denies Martial: He is but he is still . He helps to take care of his , who has lung cancer and has breathing difficulties.He has two sons and a daughter. Sons are 24 and 23. Daughter is 28 years old. Economic: Receives disability check because he has a learning disability, he can 't read or write. He has spinal stenosis. Supports: He feels his son is supportive, he feels his siblings are supportive. Abuse/trauma: Denies SUBSTANCE ABUSE HISTORY: Has used alcohol occasionally although he says years ago he used to drink "quite a bit but not anymore". doesn't smoke cigarettes. he used marijuana years ago, on and off but not anymore. Denies using cocaine or crack. Denies using heroine or other opioids. PAST MEDICAL/SURGICAL HISTORY: 1. Spinal stenosis 2. Hypertension 3. Hypothyroidism" CONSULTANTS INVOLVED: Medical evaluation and treatment TREATMENT AND PROGRESS ON THE UNIT : The patient was admitted to inpatient unit and started on medications. Initially he was discharged and continued to be having suicidal thoughts, but remained compliant with the medications and responded well to the treatment. Patient's suicidal ideations faded away and he was participating in the unit activities, including group therapy and milieu treatment. Patient did not need any constant observation IM when necessary medications or restraints while being in the hospital DISCHARGE ASSESSMENT:, Patient denied any suicidal or homicidal ideations, also denied hallucinations or paranoid ideations MENTAL STATUS EXAMINATION ON DISCHARGE: 46yo male sitting in the chair, looks appropriate for the stated age, fair hygiene and grooming, normal psychomotor activities, no abnormal movements, cooperative with fair eye contact, speech is normal in rate, rhythm, amount and prosody, mood is 'fine', affect full and mood congruent, thought process is logical and goal directed, denies suicidal and homicidal ideations, denies hallucinations, no delusions elicited, aaox3, fair immediate, short term and tripe finisher memory, fair insight, judgement and impulse control MEDICATIONS ON DISCHARGE: As noted below PLAN/FOLLOWUP ARRANGEMENTS: As arranged and noted in discharge planning as noted. The amount of time spent in the coordination of care for this patient was approximately 30 minutes. Vital Signs/I&Os Vital Signs Date Time Temp Pulse Resp B/P (MAP) Pulse Ox O2 Delivery O2 Flow Rate FiO2 03/26/17 08:05 142/90 03/26/17 08:04 80 03/26/17 06:43 97.0 18 03/23/17 06:35 Room Air 03/21/17 12:38 99 Medications Scheduled Hydralazine HCl (Hydralazine HCl) 10 Mg Tab, 10 MG PO TID, (Reported) Labetalol HCl (Labetalol HCl) 100 Mg Tab, 100 MG PO BID, (Reported) Levothyroxine Sodium (Synthroid) 200 Mcg Tab, 200 MCG PO DAILY, (Reported) Risperidone (Risperdal) 0.5 Mg Tab, 0.5 MG PO BID for ANXIETY/AGITATION for 7 Days, #14 Sertraline HCl (Sertraline HCl) 100 Mg Tab, 100 MG PO QHS, (Reported) [Sertraline Hcl] 100 MG TAB, 100 MG PO DAILY for DEPRESSION for 7 Days, #7 do not run out of medication or stop it abruptly. medication must be tapered before stopping. Scheduled PRN Hydroxyzine HCl (Hydroxyzine HCl) 50 Mg Tab, 50 MG PO Q4HP PRN for ANXIETY for 7 Days, #42 only take when necessary for anxiety Allergies Coded Allergies: Prednisone (Unverified Allergy, Unknown, aphylaxis, 07/21/15) Tramadol (Unverified Allergy, Unknown, aphylaxis, 07/21/15) Trazodone (Verified Allergy, Unknown, 10/11/14) ARLEY RAMIREZ MD Mar 26, 2017 19:24
== END 2017-03-26 14:45 | disposition home or self-care (01) | DRG 751 ==
LOC: M ED 05:28 → M ED INP 06:57 → M PSY 12:25
PROVIDERS: ADMIT Psychiatry & Neurology Psychiatry; ATTEND Psychiatry & Neurology Psychiatry
DX: F33.2 Major depressive disorder, recurrent severe without psychotic features (principal); F31.81 Bipolar II disorder; R45.851 Suicidal ideations; F70 Mild intellectual disabilities; Z91.19 Patient's noncompliance with other medical treatment and regimen; F90.9 Attention-deficit hyperactivity disorder, unspecified type; Z79.899 Other long term (current) drug therapy; Z88.8 Allergy status to other drugs, medicaments and biological substances; I10 Essential (primary) hypertension; E03.9 Hypothyroidism, unspecified; E87.6 Hypokalemia

== ENCOUNTER 2017-08-19 17:45 | Emergency (ER) | payer OTHER ==
[2017-08-19] MEDS: AUGMENTIN 875 MG TAB PO (20:03)
[2017-08-19 20:07] LABS: BASO # 0.1 10^3/uL (0.0-0.2); BASO % 0.9 % (0.0-1.0); EOS # 0.4 10^3/uL (0.0-0.50); HEMATOCRIT 29.2 % (42.0-52.0); HEMOGLOBIN 9.1 g/dl (14.0-18.0); IMMATURE GRANULOCYTE % 0.3 % (0-0); LYMPH # 1.6 10^3/uL (1.5-4.5); MEAN CORPUSCULAR HEMOGLOBIN 27.6 pg (27.0-33.0); MEAN CORPUSCULAR HGB CONC 31.2 g/dl (32.0-36.5); MEAN CORPUSCULAR VOLUME 88.5 fl (80.0-96.0); MONO # 0.8 10^3/uL (0.0-0.8); MONO % 10.7 % (0.0-5.0); NEUTROPHILS # 4.2 10^3/uL (1.8-7.7); NEUTROPHILS % 60.1 % (36.0-66.0); PLATELET COUNT, AUTOMATED 223 10^3/uL (150-450); RED CELL DISTRIBUTION WIDTH 14.8 % (11.5-14.5)
[2017-08-19] MEDS: NS 1,000 ML IV (21:30)
[2017-08-19] MEDS: PANTOPRAZOLE 40MG INJ (PROTONIX) (C9113) IV (21:30)
[2017-08-19 21:55] LABS: INR 1.03; PROTHROMBIN TIME 13.6 SECONDS (12.4-14.5)
[2017-08-19 21:56] LABS: PARTIAL THROMBOPLASTIN TIME 28.4 SECONDS (26.8-37.9)
[2017-08-19 22:02] LABS: ALBUMIN 3.4 GM/DL (3.2-5.2); ALBUMIN/GLOBULIN RATIO 1.36 (1.00-1.93); ALKALINE PHOSPHATASE 84 U/L (45-117); ALT/SGPT 17 U/L (12-78); ANION GAP 4 MEQ/L (8-16); AST/SGOT 17 U/L (7-37); BILIRUBIN,DIRECT 0.1 MG/DL (0.0-0.2); BILIRUBIN,TOTAL 0.3 MG/DL (0.2-1.0); BLOOD UREA NITROGEN 18 MG/DL (7-18); CALCIUM LEVEL 8.1 MG/DL (8.5-10.1); CARBON DIOXIDE LEVEL 29 MEQ/L (21-32); CHLORIDE LEVEL 111 MEQ/L (98-107); CREATININE FOR GFR 0.91 MG/DL (0.70-1.30); GLOMERULAR FILTRATION RATE > 60.0 (>60); GLUCOSE, FASTING 79 MG/DL (70-100); POTASSIUM SERUM 4.3 MEQ/L (3.5-5.1); SODIUM LEVEL 144 MEQ/L (136-145); TOTAL PROTEIN 5.9 GM/DL (6.4-8.2)
== END 2017-08-19 23:29 | disposition home or self-care (01) ==
LOC: M ED 17:45
DX: S91.332A Puncture wound without foreign body, left foot, initial encounter (principal); W45.0XXA Nail entering through skin, initial encounter; Y92.099 Unspecified place in other non-institutional residence as the place of occurrence of the external cause; Y93.9 Activity, unspecified; D64.89 Other specified anemias; R19.5 Other fecal abnormalities; M77.32 Calcaneal spur, left foot; Z79.899 Other long term (current) drug therapy; Z88.8 Allergy status to other drugs, medicaments and biological substances; Z88.5 Allergy status to narcotic agent
CPT/HCPCS: C9113

== ENCOUNTER 2018-06-11 21:56 | Emergency (ER) | payer MEDICAID, OTHER ==
[2018-06-11 22:47] LABS: BASO # 0.1 10^3/uL (0.0-0.2); BASO % 0.8 % (0.0-1.0); EOS # 0.3 10^3/uL (0.0-0.50); EOS % 3.7 % (0.0-3.0); HEMATOCRIT 42.4 % (42.0-52.0); HEMOGLOBIN 14.1 g/dl (13.5-17.5); IMMATURE GRANULOCYTE % 0.5 % (0-3.0); LYMPH # 2.2 10^3/uL (1.5-4.5); LYMPH % 26.7 % (24.0-44.0); MEAN CORPUSCULAR HEMOGLOBIN 27.7 pg (27.0-33.0); MEAN CORPUSCULAR HGB CONC 33.3 g/dl (32.0-36.5); MEAN CORPUSCULAR VOLUME 83.3 fl (80.0-96.0); MONO # 0.7 10^3/uL (0.0-0.8); MONO % 8.5 % (0.0-5.0); NEUTROPHILS % 59.8 % (36.0-66.0); PLATELET COUNT, AUTOMATED 233 10^3/uL (150-450); RED BLOOD COUNT 5.09 10^6/uL (4.30-6.10); RED CELL DISTRIBUTION WIDTH 15.4 % (11.5-14.5); WHITE BLOOD COUNT 8.4 10^3/uL (4.0-10.0)
[2018-06-11] MEDS: MORPHINE 4 MG/ML 1ML VIAL/SYRINGE (J2270) IV (22:47)
[2018-06-11 23:00] LABS: ANION GAP 7 MEQ/L (8-16); BLOOD UREA NITROGEN 19 MG/DL (7-18); CALCIUM LEVEL 8.7 MG/DL (8.5-10.1); CARBON DIOXIDE LEVEL 25 MEQ/L (21-32); CHLORIDE LEVEL 109 MEQ/L (98-107); CREATININE FOR GFR 1.08 MG/DL (0.70-1.30); GLOMERULAR FILTRATION RATE > 60.0 (>56); GLUCOSE, FASTING 95 MG/DL (70-100); POTASSIUM SERUM 4.1 MEQ/L (3.5-5.1); SODIUM LEVEL 141 MEQ/L (136-145)
[2018-06-11 23:06] LABS: LACTIC ACID SEPSIS PROTOCOL 0.9 MMOL/L (0.4-2.0)
[2018-06-11] MEDS: KETOROLAC 30 MG/ML VIAL (J1885) IV (23:18)
== END 2018-06-12 00:04 | disposition home or self-care (01) ==
LOC: M ED 06-12 00:04
DX: K40.20 Bilateral inguinal hernia, without obstruction or gangrene, not specified as recurrent (principal); I10 Essential (primary) hypertension; E03.9 Hypothyroidism, unspecified; M48.00 Spinal stenosis, site unspecified; F33.9 Major depressive disorder, recurrent, unspecified; F41.9 Anxiety disorder, unspecified; Z98.84 Bariatric surgery status; Z79.899 Other long term (current) drug therapy; Z79.890 Hormone replacement therapy; Z88.5 Allergy status to narcotic agent; Z88.8 Allergy status to other drugs, medicaments and biological substances
CPT/HCPCS: J2270